=== PATIENT | female | born 1950 | race African-American/Black ===

== ENCOUNTER 2016-06-29 10:58 | Emergency (ER) | payer OTHER ==
[~2016-06-29 10:58] MED LIST: ALBUTEROL INHALER; FLUT1DIS IH; LEVO500T15 PO; P20 PO; PRED10TA PO; SINGULAR PO; TYLENOL ARTHRITIS PO; ZOLP10TA2 PO
== END 2016-06-29 17:54 | disposition left against medical advice (07) ==
LOC: ER 13:10
DX: Z53.21 Procedure and treatment not carried out due to patient leaving prior to being seen by health care provider (principal); Z88.6 Allergy status to analgesic agent

== ENCOUNTER 2017-05-30 21:14 | Emergency (ER) | payer MEDICAID, OTHER ==
[~2017-05-30] VITALS: Ht 149.9 cm; Wt 62.0 kg
[~2017-05-30 21:14] MED LIST changes: -LEVO500T15 PO; +LEVO500T2 PO
[2017-05-30] MEDS ORDERED: METHYLPREDNISOLONE SOD SUCC 125 MG/2 ML VIAL IM STA (22:49)
[2017-05-30] MEDS ORDERED: ALBUTEROL (0.083%) 2.5MG/3ML NEB HHN STA (22:49)
[2017-05-30] MEDS ORDERED: IPRATROPIUM BROMIDE (0.02%) 0.5MG/2.5ML NEB HHN STA (22:49)
[2017-05-30] MEDS ORDERED: HYDROCODONE/ACETAMINOPHEN 5/325MG TABLET PO ONE (23:30)
[2017-05-31 01:30] VITALS: BP 114/65
== END 2017-05-31 01:30 | disposition home or self-care (01) ==
LOC: ER 21:14
DX: J45.909 Unspecified asthma, uncomplicated (principal); M19.90 Unspecified osteoarthritis, unspecified site; Z90.710 Acquired absence of both cervix and uterus; Z87.891 Personal history of nicotine dependence; Z88.6 Allergy status to analgesic agent
CPT/HCPCS: 71045; 94640; 96372; 99283; J2930; J7611

== ENCOUNTER 2020-07-20 22:39 | Emergency (ER) | payer MEDICARE, MEDICAID ==
[~2020-07-20] VITALS: Ht 149.9 cm; Wt 67.0 kg
[2020-07-21] MEDS ORDERED: HYDROCODONE/ACETAMINOPHEN 5/325MG TABLET PO ONE (00:30)
[2020-07-21] MEDS ORDERED: BACITRACIN ZINC OINT UDPKT TOP ONE (02:00)
[2020-07-21 02:05] VITALS: BP 138/79
== END 2020-07-21 02:08 | disposition home or self-care (01) ==
LOC: ER 22:39
DX: S00.83XA Contusion of other part of head, initial encounter (principal); J44.1 Chronic obstructive pulmonary disease with (acute) exacerbation; E11.9 Type 2 diabetes mellitus without complications; Z88.6 Allergy status to analgesic agent; Z79.899 Other long term (current) drug therapy; W01.0XXA Fall on same level from slipping, tripping and stumbling without subsequent striking against object, initial encounter; Y93.01 Activity, walking, marching and hiking; Y92.89 Other specified places as the place of occurrence of the external cause; Y99.8 Other external cause status
CPT/HCPCS: 70486; 73130; 99285